=== PATIENT | male | born 1990 | race Caucasian/White ===

== ENCOUNTER 2022-09-15 15:05 | Emergency (ER) | payer BC, MEDICAID ==
[2022-09-15] MEDS ORDERED: Sodium Chloride 0.9% 10 ML Syringe FLUSH PRN (15:32)
[2022-09-15] MEDS ORDERED: Piperacillin/Tazobactam 4.5 GM in Sodium Chloride 0.9% 100 ML IV ONE (15:35)
[2022-09-15] MEDS ORDERED: VANCOmycin 2 GM/400 ML 2 GM in Premix Bag 1 BAG IV ONE (15:36)
[2022-09-15 16:07] LABS: PTT,PARTIAL THROMBOPLSTIN TIME 33.7 SEC (20.5-30.9)
[2022-09-15 16:15] LABS: CHLORIDE,CL 93 mmol/L (98-107); SODIUM,NA 133 mmol/L (136-145)
[2022-09-15 16:17] LABS: ANION GAP 14.1 mmol/L (5-15); ESTIMATED GFR 82 mL/min (>=60)
[2022-09-15] MEDS ORDERED: Sodium Chloride 0.9% 1,000 ML IV SCH (16:45)
== END 2022-09-15 17:21 | disposition short-term general hospital (02) ==
LOC: VM.ED 15:05
DX: E11.621 Type 2 diabetes mellitus with foot ulcer (principal); L97.519 Non-pressure chronic ulcer of other part of right foot with unspecified severity; F50.89 Other specified eating disorder; Z72.0 Tobacco use
CPT/HCPCS: 36415; 73630-RT; 80053; 83605; 83735; 84100; 84145; 85025; 85610; 85730; 86140; 87040; 87070; 87077; 87186; 96365; 96367; 99284-25; J2543; J3370

== ENCOUNTER 2023-08-07 23:45 | Emergency (ER) | payer MEDICAID, OTHER | END 2023-08-08 00:12 | LOC: VM.ED 23:45 | DX: Z02.89 Encounter for other administrative examinations (principal); E11.9 Type 2 diabetes mellitus without complications; I10 Essential (primary) hypertension; Z87.891 Personal history of nicotine dependence | CPT/HCPCS: 99283 ==